=== PATIENT | female | born 1965 | race Hispanic/Latino ===

== ENCOUNTER 2017-09-13 20:24 | Emergency (ER) | payer BC, SELFPAY ==
[2017-09-13 20:47] LABS: #Eosinphils 0.1 thou/uL (0.0-0.7); #Lymphocytes 2.1 thou/uL (1.20-3.40); #Monocytes 0.5 thou/uL (0.11-0.59); #Neutrophils 4.7 thou/uL (1.40-6.50); %Basophils 0.4 % (0.0-1.0); %Eosinophils 1.7 % (0.0-10.0); %Lymphocytes 28.6 % (21.0-51.0); %Monocytes 6.1 % (0.0-10.0); %Neutrophils 63.2 % (42.0-75.0); Hemoglobin 14.2 g/dL (12.0-16.0); Mean Corpuscular HGB CONC 34.5 g/dL (32.0-36.0); Mean Corpuscular Hemoglobin 31.7 pg (27.0-31.0); Mean Corpuscular Volume 91.8 fl (81.0-99.0); Mean Platelet Volume 6.7 fL (7.4-10.4); Platelet Count 289 thou/uL (130-400); RBC Distribution Width 11.4 % (11.5-14.5); Red Blood Cell (RBC) Count 4.47 mill/uL (4.20-5.40); White Blood Cell (WBC) Count 7.4 thou/uL (4.8-10.8)
[2017-09-13 21:10] LABS: ALT (SGPT) 16 U/L (8-55); AST (SGOT) 22 U/L (5-34); Acetaminophen Less than 6.0 mcg/mL (10.0-30.0); Albumin 4.4 g/dL (3.5-5.0); Alcohol Less than 10 mg/dL (Less than 10); Alkaline Phosphatase 110 U/L (40-150); Anion Gap 12 mmol/L (10-20); BUN (Urea Nitrogen) 9 mg/dL (9.8-20.1); CK (CPK) 90 U/L (29-168); Calc. Creatinine Clearance 0 mL/min (70-130); Calcium 9.8 mg/dL (7.8-10.44); Carbon Dioxide 25 mmol/L (22-29); Chloride 107 mmol/L (98-107); Estimated GFR-MDRD 71; Globulin 3.6 g/dL (2.4-3.5); Glucose 99 mg/dL (70-105); Potassium 3.8 mmol/L (3.5-5.1); Salicylate Less than 8.0 mg/dL (15.0-30.0); Sodium 140 mmol/L (136-145)
[2017-09-13 21:49] LABS: Bilirubin Negative (Negative); Blood, Urine Negative (Negative); Clarity CLEAR (Clear); Glucose, Urine (Dipstick) Negative (Negative); Leukocyte Negative (Negative); Nitrite Negative (Negative); Protein, Urine (Dipstick) Negative (Neg-Trace); Specific Gravity, Urine 1.006 (1.002-1.036); pH, Urine 7.5 (5.0-9.0)
[2017-09-13 21:50] LABS: Pregnancy Test - Urine (BHCG) Negative (Negative); Pregu Control Background? CLEAR/WHITE (CLR/WHITE); Pregu Control Bar Appear? YES (CONTROL BAR); Specific Gravity 1.006 (1.002-1.036)
[2017-09-13 22:01] LABS: Amphetamine Not Detected (NotDetected); Barbiturates Screen Not Detected (NotDetected); Benzodiazepine Screen Not Detected (NotDetected); Cocaine Metabolite Screen Not Detected (NotDetected); Medtox Control Line Valid? VALID (VALID); Medtox Reader # READER 1; Methadone Not Detected (NotDetected); Methamphetamine Not Detected (NotDetected); Opiate Screen Not Detected (NotDetected); Oxycodone Screen Not Detected (NotDetected); Phencyclidine (PCP) Not Detected (NotDetected); THC/Cannabinoid Screen Not Detected (NotDetected); Tricyclic Screen Not Detected (NotDetected)
== END 2017-09-13 23:00 | disposition home or self-care (01) ==
LOC: EEVIPCON 20:24 → ERS 20:24
DX: F43.0 Acute stress reaction (principal); Z87.891 Personal history of nicotine dependence
CPT/HCPCS: 36415; 80053; 80306; 80307; 81003; 81025; 82550; 84443; 85025; 99283

== ENCOUNTER 2018-07-06 06:33 | Emergency (ER) | payer SELFPAY ==
[2018-07-06 07:01] LABS: #Eosinphils 0.2 thou/uL (0.0-0.7); #Monocytes 0.4 thou/uL (0.11-0.59); #Neutrophils 4.7 thou/uL (1.40-6.50); %Basophils 0.4 % (0.0-1.0); %Eosinophils 2.4 % (0.0-10.0); %Lymphocytes 27.2 % (21.0-51.0); %Monocytes 5.7 % (0.0-10.0); %Neutrophils 64.3 % (42.0-75.0); Hemoglobin 12.7 g/dL (12.0-16.0); Mean Corpuscular HGB CONC 33.2 g/dL (32.0-36.0); Mean Corpuscular Hemoglobin 30.9 pg (27.0-31.0); Mean Corpuscular Volume 92.8 fL (78.0-98.0); Mean Platelet Volume 6.6 fL (7.4-10.4); Platelet Count 296 thou/uL (130-400); RBC Distribution Width 11.8 % (11.5-14.5); White Blood Cell (WBC) Count 7.3 thou/uL (4.8-10.8)
[2018-07-06 07:21] LABS: ALT (SGPT) 13 U/L (8-55); AST (SGOT) 20 U/L (5-34); Alkaline Phosphatase 86 U/L (40-150); Anion Gap 11 mmol/L (10-20); BUN (Urea Nitrogen) 7 mg/dL (9.8-20.1); Bilirubin, Total 0.9 mg/dL (0.2-1.2); Calc. Creatinine Clearance 0 mL/min (70-130); Calcium 9.3 mg/dL (7.8-10.44); Carbon Dioxide 21 mmol/L (22-29); Chloride 108 mmol/L (98-107); Estimated GFR-MDRD 82; Globulin 3.3 g/dL (2.4-3.5); Glucose 94 mg/dL (70-105); Potassium 3.5 mmol/L (3.5-5.1); Protein, Total 7.3 g/dL (6.0-8.3); Sodium 136 mmol/L (136-145)
[2018-07-06] MEDS ORDERED: Morphine 4 MG/ML VIAL ONE (07:33)
[2018-07-06] MEDS ORDERED: Ketorolac Tromethamine 30 MG/ML VIAL ONE (07:33)
[2018-07-06] MEDS ORDERED: Ondansetron PF 4 MG/2 ML Vial ONE (07:38)
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
[2018-07-06] MEDS ORDERED: ISOVUE-370 76%-LOCM 1 ML ONE (17:10)
== END 2018-07-06 09:14 | disposition home or self-care (01) ==
LOC: ERS 06:33
DX: S22.089A Unspecified fracture of T11-T12 vertebra, initial encounter for closed fracture (principal); Z87.891 Personal history of nicotine dependence; V49.9XXA Car occupant (driver) (passenger) injured in unspecified traffic accident, initial encounter
CPT/HCPCS: 70450; 71045; 72125; 74177; 80053; 85025; 96374; 96375; G0390; J1885; J2270; J2405; Q9966

== ENCOUNTER 2018-10-12 16:08 | Outpatient (CLI) | payer OTHER ==
--- NOTE | 2018-10-12 16:17 | RAD ---
Exam:Right hand fourth digit 3 views HISTORY: Pain. COMPARISON: None FINDINGS: Nondisplaced fracture along the middle phalanx of the fourth digit. Associated soft tissue swelling. Possible intra-articular extension. IMPRESSION: Fracture.
== END 2018-10-12 16:09 | disposition home or self-care (01) ==
LOC: RAD-FRANK 16:08
PROVIDERS: ATTEND Nurse Practitioner Family
DX: M79.644 Pain in right finger(s) (principal); S62.654A Nondisplaced fracture of middle phalanx of right ring finger, initial encounter for closed fracture

== ENCOUNTER 2021-03-10 21:10 | Emergency (ER) | payer SELFPAY ==
[~2021-03-10 21:10] MED LIST: Iopamidol-370 76% 500 ML 1 ML ONE
[2021-03-10] MEDS ORDERED: Ondansetron PF 4 MG/2 ML Vial ONE (21:31)
[2021-03-10 21:37] LABS: #Lymphocytes 0.6 thou/uL (1.20-3.40); #Monocytes 0.3 thou/uL (0.11-0.59); #Neutrophils 14.1 thou/uL (1.40-6.50); %Basophils 0.2 % (0.0-1.0); %Eosinophils 0.2 % (0.0-10.0); %Lymphocytes 4.2 % (21.0-51.0); %Monocytes 1.7 % (0.0-10.0); %Neutrophils 93.7 % (42.0-75.0); Hemoglobin 16.3 g/dL (12.0-16.0); Mean Corpuscular HGB CONC 35.1 g/dL (32.0-36.0); Mean Corpuscular Hemoglobin 32.3 pg (27.0-31.0); Mean Corpuscular Volume 91.8 fL (78.0-98.0); Platelet Count 320 thou/uL (130-400); RBC Distribution Width 11.2 % (11.5-14.5); Red Blood Cell (RBC) Count 5.05 mill/uL (4.20-5.40); White Blood Cell (WBC) Count 15.1 thou/uL (4.8-10.8)
[2021-03-10] MEDS ORDERED: Metoclopramide HCl 10 MG/2 ML VIAL ONE (21:54)
[2021-03-10] MEDS ORDERED: Famotidine/PF 20 mg/2ml Vial ONE (21:54)
[2021-03-10 22:09] LABS: ALT (SGPT) 15 U/L (8-55); AST (SGOT) 23 U/L (5-34); Albumin 4.6 g/dL (3.5-5.0); Alkaline Phosphatase 112 U/L (40-110); Anion Gap 26 mmol/L (10-20); BUN (Urea Nitrogen) 16 mg/dL (9.8-20.1); Bilirubin, Total 0.4 mg/dL (0.2-1.2); Calc. Creatinine Clearance 0 mL/min (70-130); Calcium 9.7 mg/dL (7.8-10.44); Carbon Dioxide 15 mmol/L (22-29); Chloride 102 mmol/L (98-107); Globulin 4.5 g/dL (2.4-3.5); Glucose 124 mg/dL (70-105); Lipase 14 U/L (8-78); Potassium 4.1 mmol/L (3.5-5.1); Protein, Total 9.1 g/dL (6.0-8.3); Sodium 139 mmol/L (136-145)
== END 2021-03-11 00:45 | disposition home or self-care (01) ==
LOC: ERS 21:10
DX: R11.2 Nausea with vomiting, unspecified (principal); E86.0 Dehydration; Z87.891 Personal history of nicotine dependence
CPT/HCPCS: 74177; 80053; 83690; 84484; 85025; 93005; 96365; 96375; J2405; J2765; Q9967; S0028